=== PATIENT | female | born 1950 | race Two or more races ===

== ENCOUNTER 2021-06-22 11:44 | Emergency (ER) | payer OTHER ==
[~2021-06-22] VITALS: Ht 157.5 cm; Wt 140.6 kg
[~2021-06-22 11:44] MED LIST: LISINOPRIL20 MG; SYNTHROID100 MCG
[2021-06-22] MEDS ORDERED: KETO10TA2 PO (16:14)
[2021-06-22] MEDS ORDERED: NORFLEX100MG PO (16:14)
== END 2021-06-22 16:19 | disposition home or self-care (01) ==
LOC: ER 11:44
DX: M54.50 Low back pain, unspecified (principal); E03.9 Hypothyroidism, unspecified; I10 Essential (primary) hypertension